=== PATIENT | female | born 1970 | race Asian ===

== ENCOUNTER 2021-09-03 20:51 | Emergency (ER) | payer BC ==
[~2021-09-03] VITALS: Ht 160 cm; Wt 63.5 kg
--- NOTE | 2021-09-03 23:22 | NUR ---
NO BEDS AVAILABLE IN THE ER. PLACED PATIENT IN HALLWAY.
[2021-09-03 23:55] LABS: BILIRUBIN,DIRECT 0.1 mg/dL (0.0-0.2); BILIRUBIN,TOTAL 0.3 mg/dL (0.2-1.0); CREATININE 0.7 mg/dL (0.6-1.3); POTASSIUM 3.7 mmol/L (3.5-5.1); TOTAL PROTEIN, SERUM 8.9 g/dL (6.4-8.2)
[2021-09-04 00:58] LABS: HEMATOCRIT 47.8 % (31.2-41.9); MEAN CORPUSCULAR HEMOGLOBIN 31.9 uug (24.7-32.8); MEAN CORPUSCULAR VOLUME 93.6 fL (75.5-95.3); PLATELET COUNT (AUTO) 282 K/uL (179-408)
--- NOTE | 2021-09-04 02:30 | NUR ---
Pt placed in room ED4A. Pt waiting comfortably for diagnostic results. Pt denies any pain, sob, n/v, dizziness or discomfort of any kind. Pt is completely asymtpomatic for HTN. Nothing pending for pt, simply waiting for result.
--- NOTE | 2021-09-04 04:10 | NUR ---
Pt given dc instructions and confirmed understanding of aftercare. Pt told to follow up with PMD in the AM. Pts BP was elevated so EDMD ordered 5mg of Norvasc until she is able to go see her PMD at his office. Admininstered medication to pt and escorted her out of dept. pt has steady gait and is completely asymptomatic for HTN. Denies any pain, OROSCO, ringing in the ears, thrubbing of temples ect. No s/sx of distress present.
[2021-09-04] MEDS ORDERED: AMLODIPINE 5 MG TABLET ONE (04:14)
[2021-09-04 04:17] VITALS: BP 178/91
== END 2021-09-04 04:10 | disposition home or self-care (01) ==
LOC: ER 20:53
DX: R07.89 Other chest pain (principal); I10 Essential (primary) hypertension; Z20.822 Contact with and (suspected) exposure to COVID-19
CPT/HCPCS: 36415; 70030-TC; 71045; 84443; 85025; 85730; 93005; A4663